=== PATIENT | female | born 1950 | race African-American/Black ===

== ENCOUNTER → 2018-05-22 | Outpatient (CLI) | payer MEDICARE, OTHER ==
[~2018-05-22] MED LIST: IOHEXOL 180 MG/ML 10 ML VIAL.; LIDOCAINE 1% PF 2 ML VIAL.; methylPREDNISolone ACETATE 40 MG/ML VIAL.; methylPREDNISolone ACETATE 80 MG/ML VIAL.
== END ==
LOC: PNCL 09:33
DX: M51.16 Intervertebral disc disorders with radiculopathy, lumbar region (principal); M48.062 Spinal stenosis, lumbar region with neurogenic claudication; I10 Essential (primary) hypertension; D75.1 Secondary polycythemia; K57.92 Diverticulitis of intestine, part unspecified, without perforation or abscess without bleeding; Z88.8 Allergy status to other drugs, medicaments and biological substances; Z90.49 Acquired absence of other specified parts of digestive tract; Z90.710 Acquired absence of both cervix and uterus
CPT/HCPCS: 62323; J1030; J1040; Q9965

== ENCOUNTER → 2018-06-05 | Outpatient (CLI) | payer MEDICARE, OTHER | LOC: PNCL 09:17 | DX: M51.16 Intervertebral disc disorders with radiculopathy, lumbar region (principal); M48.062 Spinal stenosis, lumbar region with neurogenic claudication; I10 Essential (primary) hypertension; Z88.8 Allergy status to other drugs, medicaments and biological substances; Z90.710 Acquired absence of both cervix and uterus; Z90.49 Acquired absence of other specified parts of digestive tract; Z79.899 Other long term (current) drug therapy | CPT/HCPCS: 62323; J1030; J1040; Q9965 ==

== ENCOUNTER → 2018-06-19 | Outpatient (CLI) | payer MEDICARE, OTHER ==
[~2018-06-19] MED LIST changes: -LIDOCAINE 1% PF 2 ML VIAL.; +LIDOCAINE 2% PF 2ML VIAL.
== END | disposition home or self-care (01) ==
LOC: PNCL 07:52
DX: M48.062 Spinal stenosis, lumbar region with neurogenic claudication (principal); M51.16 Intervertebral disc disorders with radiculopathy, lumbar region; I10 Essential (primary) hypertension; Z88.8 Allergy status to other drugs, medicaments and biological substances; Z79.899 Other long term (current) drug therapy; Z90.710 Acquired absence of both cervix and uterus; Z90.49 Acquired absence of other specified parts of digestive tract
CPT/HCPCS: 62323; J1030; J1040; J2001; Q9965

== ENCOUNTER → 2018-08-13 | Outpatient (CLI) | payer MEDICARE, OTHER ==
[2015-11-24 17:00] VITALS: BP 134/65
[~2018-08-13] MED LIST changes: +ASPI-630 PO; +DOCU-109 PO; +HYDR-2762 PO; -IOHEXOL 180 MG/ML 10 ML VIAL.; -LIDOCAINE 2% PF 2ML VIAL.; +METH-38 PO; +RUXO5TAB PO; +TRAM50TA PO; +TRIA1TAB PO; -methylPREDNISolone ACETATE 40 MG/ML VIAL.; -methylPREDNISolone ACETATE 80 MG/ML VIAL.
== END | disposition home or self-care (01) ==
LOC: SURGPAT 13:00
PROVIDERS: ATTEND Neurological Surgery
DX: Z01.818 Encounter for other preprocedural examination (principal); M48.062 Spinal stenosis, lumbar region with neurogenic claudication
CPT/HCPCS: 87641

== ENCOUNTER 2018-08-22 10:20 | Day surgery (SDC) | payer MEDICARE, OTHER ==
--- NOTE | 2018-08-21 15:49 | PREOP HP ---
DATE OF SERVICE: 08/22/2018 HISTORY OF PRESENT ILLNESS: The patient is a pleasant 67-year-old who has bilateral thigh and hip pain along with posterior thigh and leg pain. The problem started in 03/2018 spontaneously. She did try epidural steroid injections, which she said did not help or if anything made her worse. She rates her pain as a 10/10. Standing and walking increase her pain. Gabapentin is no longer helpful. She said her first epidural steroid injection helped, but the remainder made her worse or did not help. PAST MEDICAL HISTORY: Anemia, arthritis, blood disease, chest pain, cold sore or fever blister, hypertension, stomach or intestinal disease, diabetes. PAST SURGICAL HISTORY: Jeff with skin graft in 1955, hysterectomy in 1984. FAMILY HISTORY: Alzheimer cancer, diabetes. SOCIAL HISTORY: Retired. . Rarely exercises. Denies substance abuse. Denies tobacco use. Denies alcohol use. Drinks tea daily. ALLERGIES: No known drug allergies. CURRENT MEDICATIONS: Maxzide, baby aspirin, Jakafi, gabapentin. REVIEW OF SYSTEMS: A 12-point review of systems was obtained and is noncontributory except for that mentioned above. PHYSICAL EXAMINATION: NEUROSURGERY EXAMINATION: GENERAL APPEARANCE: Alert, pleasant, no acute distress. HEAD: Normocephalic and atraumatic. SKIN: Warm and dry. MUSCULOSKELETAL: Lumbar paraspinal muscle bulk is normal, restricted range of motion of the lumbar spine, [id number]-[id number] tenderness of lower lumbar spine with palpation, normal range of motion of the lower extremities bilaterally. EXTREMITIES: No clubbing, cyanosis or edema. NEUROLOGIC: Alert and oriented x 3, normal recent memory, strength 5/5 in bilateral lower extremities, sensory was intact to light touch in the lower extremities bilaterally, reflexes were present and symmetric in the bilateral lower extremities, negative straight leg raising bilaterally, normal gait. IMAGING: I reviewed a lumbar MRI scan. On that study, there is lateral recess stenosis present at L2-L3 and L3-L4. ASSESSMENT/PLAN: The patient has failed to improve with conservative measures. At this point, I feel that bilateral micro-decompressive surgery at L3-L4 and L2-L3 would be of benefit to her. I outlined the surgery and risks with her. She would like to go ahead. We will make the arrangements. KASANDRA BIGGS MD DR: JYOTSNA/robert JOB#: [id number] / [id number] ROHIT
[~2018-08-22] VITALS: Ht 165.1 cm; Wt 79.4 kg
[~2018-08-22 10:20] MED LIST changes: -ASPI-630 PO; +BACITRACIN 50,000 UNIT in IV NORMAL SALINE 1000ML BAG 1,000 ML IRR ONE; +BUPIVAC MPF-EPI 0.5%-1:200000 30 ML VIAL. INJ ONE; +BUPIVAC MPF-EPI 0.5%-1:200000 30 ML VIAL. ONE; -DOCU-109 PO; +GELATIN SPONGE SIZE 100. ONE; -HYDR-2762 PO; +HYDROmorphone 2 MG/ML VIAL IV PRN; +IV RINGERS,LACTATED 1000ML 1,000 ML IV SCH; +KETOROLAC 60 MG/2 ML INJ FOR OR. ONE; +LIDOCAINE 1% PF 2 ML VIAL. ID PRN; -METH-38 PO; +MORPHINE SULFATE 2 MG/ML VIAL. IV PRN; +ONDANSETRON PF 4 MG/2 ML VIAL. IV PRN; +PROCHLORPERAZINE 10 MG/2 ML VIAL. IV PRN; +THROMBIN TOPICAL 20,000 UNIT SPRAY.SYRN KIT TP ONE
[2018-08-22] MEDS ORDERED: PROPOFOL 50 ML IV ONE ×2 (10:48→13:24)
[2018-08-22] MEDS ORDERED: REMIFENTANIL 2 MG VIAL. IV ONE (10:48)
[2018-08-22] MEDS ORDERED: PROPOFOL 20 ML IV ONE (10:48)
[2018-08-22] MEDS ORDERED: ONDANSETRON PF 4 MG/2 ML VIAL. ONE (10:48)
[2018-08-22] MEDS ORDERED: DEXAMETHASONE SOD PHOS 20 MG/5 ML VIAL. ONE (10:48)
[2018-08-22] MEDS ORDERED: ROCURONIUM 50 MG/5 ML VIAL. ONE (10:48)
[2018-08-22] MEDS ORDERED: ASPI-630 PO (10:56)
[2018-08-22] MEDS ORDERED: PHENYLEPHRINE 10 MG/ML VIAL. ONE (11:19)
[2018-08-22] MEDS ORDERED: GLYCOPYRROLATE 1 MG/5 ML VIAL. ONE (12:35)
[2018-08-22] MEDS ORDERED: DESFLURANE > 120 MINUTES IH ONE (12:56)
--- NOTE | 2018-08-22 14:59 | DISCH ---
DISCHARGE INSTRUCTIONS Condition on Discharge Condition on Discharge: Stable Activity After Discharge Activity Instructions for Disc: Activity as tolerated, Avoid exertion Other activity instructions: no driving for a week Bathing Instructions: Shower-keep dressing dry Lifting Instructions after Dis: No heavy lifting, No pulling or pushing, Do not lift >10 pounds Diet after Discharge Additional Diet Restrictions: resume home diet Wound Incision Care Wound/Incision Care: Ice to area for comfort Other wound/incision instructi: may remove dressing in 48 hrs if dry then may shower, no soaking Contacting the after DC Call your doctor for: Concerns you may have Follow-Up Follow up with: Dr. Biggs's nurse in 2 weeks [phone] KASANDRA BIGGS MD Aug 22, 2018 14:59
[2018-08-22] MEDS ORDERED: DOCU-109 PO (15:03)
[2018-08-22] MEDS ORDERED: HYDR-2762 PO (15:03)
[2018-08-22] MEDS ORDERED: METH-38 PO (15:03)
[2018-08-22] MEDS ORDERED: fentaNYL PF VIAL 100 MCG/2 ML VIAL ONE (16:24)
[2018-08-22] MEDS ORDERED: HYDROcodone/APAP 7.5/325MG 1 TAB TABLET PO ONE (16:30)
[2018-08-22] MEDS ORDERED: fentaNYL PF VIAL 100 MCG/2 ML VIAL IV PRN (16:45)
--- NOTE | 2018-08-22 17:13 | OP ---
DATE OF SURGERY: 08/22/2018 PREOPERATIVE DIAGNOSES: Lateral recess stenosis with lumbar radiculopathy, L2-L3, L3-L4. POSTOPERATIVE DIAGNOSES: Lateral recess stenosis with lumbar radiculopathy, L2-L3, L3-L4. OPERATION PERFORMED: Hemilaminotomy with decompression of dura and nerve root L2-L3, right; L2-L3, left; L3-L4, right; L3-L4, left. The operation was done with EMG monitoring. EMGs and SSEP monitoring was performed. The operation also employed fluoroscopy, microscopic dissection. SURGEON: Yovanny Biggs M.D. ROTATIONAL MOULDING OPERATOR: MUNA Hines assisted with the surgery. She assisted with the exposure of the bilateral microdecompression as well as closure. OPERATIVE INDICATIONS: The patient is a pleasant 67-year-old woman who developed intractable back and bilateral leg pain, which failed conservative measures. On imaging studies, she had the above-mentioned findings and I recommended lumbar microsurgery. I spoke with her about the surgery and the risks, the technique of the surgery. She understood and she wished to go ahead. DESCRIPTION OF PROCEDURE: Following general endotracheal anesthesia, the patient was positioned prone on the Louis table. Her lumbar region was prepped and draped in standard fashion. NADER hose and AV impulse boots were applied for DVT prophylaxis. The microscope was draped. Fluoroscopy was draped and brought into field. Monitoring was established. Ancef 2 grams was given less than 1 hour prior to initiation of surgery. Using fluoroscopic guidance,an incision was made from L2 to L4, dissected down subcutaneous tissue, reflected the paraspinal muscles first to the right side, which was the more painful side. I then brought in the microscope and then using the high-speed air drill with microscopic technique beginning at L3-L4, I burred down a generous hemilaminotomy and then superiorly to L2-L3, I performed the identical operation at this level. First, I drilled away the bone over the hemilaminotomy sites. I trimmed away the very thickened ligamentum flavum from medial to lateral and then performed a generous partial foraminotomy. There were a large number of epidural veins, which I coagulated. The bone was also somewhat vascular. The dura was markedly compressed and pushed medially and as I peeled away the ligament and decompressed, the nerve moved laterally appropriately at both levels. I then went to the left side and performed the identical operation at both levels L2-L3 and L3-L4 on the left and then following this, I explored carefully and then, I irrigated copiously. I assured myself that the regions were very well decompressed. I obtained excellent hemostasis in the muscle and then, I closed the wound in layers with absorbable suture and the skin was closed with 4-0 subcuticular stitch. I felt the surgery went very well and the patient was awakened uneventfully. I was quite pleased with the surgery. YOVANNY BIGGS MD DR: JYOTSNA/robert JOB#: [id number] / [id number] ROHIT
[2018-08-22 18:34] VITALS: BP 122/54
== END 2018-08-22 18:34 | disposition home or self-care (01) ==
LOC: SURG 10:20
PROVIDERS: ATTEND Neurological Surgery
DX: M48.061 Spinal stenosis, lumbar region without neurogenic claudication (principal); M54.16 Radiculopathy, lumbar region; I10 Essential (primary) hypertension; G47.30 Sleep apnea, unspecified; K21.9 Gastro-esophageal reflux disease without esophagitis; M19.90 Unspecified osteoarthritis, unspecified site; D64.9 Anemia, unspecified; E11.9 Type 2 diabetes mellitus without complications; K76.0 Fatty (change of) liver, not elsewhere classified; Z79.899 Other long term (current) drug therapy; Z79.82 Long term (current) use of aspirin; Z90.710 Acquired absence of both cervix and uterus; Z90.49 Acquired absence of other specified parts of digestive tract; Z88.8 Allergy status to other drugs, medicaments and biological substances; Z85.89 Personal history of malignant neoplasm of other organs and systems
CPT/HCPCS: 63047; 63048; 76000; 97162; 97530; A7015; G8978; G8979; G8980; J0690; J1100; J1885; J2405; J2704; J3010; J3490; J7030